=== PATIENT | male | born 1965 | race Caucasian/White ===

== ENCOUNTER 2017-06-04 12:21 | Emergency (ER) | payer OTHER ==
[~2017-06-04] VITALS: Ht 182.9 cm; Wt 82.6 kg
[2017-06-04 12:25] VITALS: BP 153/105; PULSE 69; RESP 16; TEMP 97.7; O2SAT 99
[2017-06-04] MEDS ORDERED: ASPI325T PO (12:49)
[2017-06-04] MEDS ORDERED: VITA10002 PO (12:49)
[2017-06-04] MEDS ORDERED: CEPH250T PO (12:49)
[2017-06-04] MEDS ORDERED: LISI40TA PO (12:49)
[2017-06-04] MEDS ORDERED: FISHCAP4 PO (12:49)
[2017-06-04] MEDS ORDERED: PRAV80TA2 PO (12:49)
[2017-06-04] MEDS ORDERED: SODIUM CHLORIDE 0.9% FLUSH 10 ML FLUSH IV FLUSH PRN (13:00)
[2017-06-04] MEDS ORDERED: VANCOMYCIN INJ 1,250 MG in SODIUM CHLOR 0.9% 250 ML INJ 250 ML IV ONE (13:00)
--- NOTE | 2017-06-04 13:02 | PD ---
HPI Chief Complaint: Skin Problem Time Seen by Provider: 12:45 Travel History International Travel<30 days: No Contact w/Intl Traveler<30days: No Traveled to known affect area: No History of Present Illness HPI Patient is a 52-year-old male who presents to emergency room for evaluation of skin infection. Patient reports that on Saturday, he scraped his left anterior freeman on a ladder. Reports that it initially was a scrape, reports that by Saturday, he noticed increased redness and drainage from the area. He did go to an urgent care Saturday around 11 AM and was started on Keflex 4 times a day. Patient reports that his infection seems to be getting worse. Patient reports that he went back to the urgent care center today and was told to go to the emergency room for further evaluation. Patient reports that his tetanus is up-to-date, patient denies any fevers or chills, denies any nausea or vomiting. Patient has been dressing his wounds with bacitracin dressings and has been leaving it open to dry. Patient denies any pain from the area of redness and drainage. Patient is not a diabetic. Patient reports that he has been taking Keflex as prescribed since Saturday Past Medical History Hypertension: Yes Past Surgical History Tonsillectomy: Yes Social History Alcohol Use: No Tobacco Use: Yes (12ppd) Substance Use: No Allergies-Medications (Allergen,Severity, Reaction): Coded Allergies: No Known Allergies (Unverified , 06/04/17) Reported Meds & Prescriptions Reported Meds & Active Scripts Active Bactrim DS (Sulfamethoxazole-Trimethoprim) 800-160 Mg Tab 1 Tab PO BID Keflex (Cephalexin) 500 Mg Capsule 500 Mg PO Q6H 10 Days Bacitracin Topical 500 Unit/Gm Oint 1 Applic TOPICAL TID Reported Vitamin B-12 (Cyanocobalamin) 1,000 Mcg Tab 1,000 Mcg PO DAILY Pravastatin 80 Mg Tab 80 Mg PO HS Lisinopril 40 Mg Tab 80 Mg PO HS Fish Oil + D3 (Fish Oil-Cholecalciferol) 1,200-1,000 Mg-Unit Cap 1 Cap PO DAILY Cephalexin 250 Mg Tab 250 Mg PO Q6H Aspirin 325 Mg Tab 325 Mg PO DAILY Review of Systems General / Constitutional: No: Fever, Chills Eyes: No: Visual changes HENT: No: Headaches Cardiovascular: No: Chest Pain or Discomfort Respiratory: No: Shortness of Breath Gastrointestinal: No: Abdominal Pain Genitourinary: No: Dysuria Musculoskeletal: No: Pain Skin: Positive Rash Neurologic: No: Weakness Psychiatric: No: Depression Endocrine: No: Polydipsia Hematologic/Lymphatic: No: Easy Bruising Physical Exam Narrative GENERAL: NAD, nontoxic SKIN: Focused skin assessment warm/dry. HEAD: Atraumatic. Normocephalic. EYESNo injection or drainage. ENT: No nasal bleeding or discharge. Mucous membranes pink and moist. NECK: Trachea midline. No JVD. CARDIOVASCULAR: Regular rate and rhythm. No murmur appreciated. RESPIRATORY: No accessory muscle use. Clear to auscultation. Breath sounds equal bilaterally. GASTROINTESTINAL: Abdomen soft, non-tender, nondistended. Hepatic and splenic margins not palpable. MUSCULOSKELETAL: No obvious deformities. No clubbing. No cyanosis. No edema. LLE: patient with a 12cm x 2cm cellulitis with ulceration to left anterior freeman , there is no streaking on exam, pulses intact, neurovascularly intact; RLE: patient with abrasion to right anterior freeman NEUROLOGICAL: Awake and alert. No obvious cranial nerve deficits. Motor grossly within normal limits. Normal speech. PSYCHIATRIC: Appropriate mood and affect; insight and judgment normal. Data Data Last Documented VS Vital Signs Date Time Temp Pulse Resp B/P (MAP) Pulse Ox O2 Delivery O2 Flow Rate FiO2 06/04/17 12:25 97.7 69 16 153/105 (121) 99 Orders Orders Basic Metabolic Panel (Bmp) (06/04/17 12:54) Complete Blood Count With Diff (06/04/17 12:54) Iv Access Insert/Monitor (06/04/17 12:54) Sodium Chloride 0.9% Flush (Ns Flush) (06/04/17 13:00) Tibia/Fibula (Ap/Lat) (06/04/17 ) Vancomycin Inj (Vancomycin Inj) (06/04/17 13:00) Labs Laboratory Tests Test 06/04/17 13:14 White Blood Count 12.6 TH/MM3 Red Blood Count 5.52 MIL/MM3 Hemoglobin 15.9 GM/DL Hematocrit 48.7 % Mean Corpuscular Volume 88.1 FL Mean Corpuscular Hemoglobin 28.7 PG Mean Corpuscular Hemoglobin Concent 32.6 % Red Cell Distribution Width 14.4 % Platelet Count 458 TH/MM3 Mean Platelet Volume 9.0 FL Neutrophils (%) (Auto) 73.5 % Lymphocytes (%) (Auto) 20.0 % Monocytes (%) (Auto) 4.7 % Eosinophils (%) (Auto) 1.1 % Basophils (%) (Auto) 0.7 % Neutrophils # (Auto) 9.3 TH/MM3 Lymphocytes # (Auto) 2.5 TH/MM3 Monocytes # (Auto) 0.6 TH/MM3 Eosinophils # (Auto) 0.1 TH/MM3 Basophils # (Auto) 0.1 TH/MM3 CBC Comment DIFF FINAL Differential Comment Blood Urea Nitrogen 15 MG/DL Creatinine 0.81 MG/DL Random Glucose 96 MG/DL Calcium Level 8.9 MG/DL Sodium Level 139 MEQ/L Potassium Level 3.5 MEQ/L Chloride Level 106 MEQ/L Carbon Dioxide Level 27.3 MEQ/L Anion Gap 6 MEQ/L Estimat Glomerular Filtration Rate 100 ML/MIN MDM Medical Decision Making Medical Screen Exam Complete: Yes Emergency Medical Condition: Yes Medical Record Reviewed: Yes Interpretation(s) Vital Signs Date Time Temp Pulse Resp B/P (MAP) Pulse Ox O2 Delivery O2 Flow Rate FiO2 06/04/17 12:25 97.7 69 16 153/105 (121) 99 Differential Diagnosis Differential includes cellulitis with abscess, osteomyelitis Narrative Course 52-year-old male who presents to emergency room with complaints of left anterior freeman infection after he injured himself on Saturday with a ladder. Patient has been on antibiotics since Saturday, Keflex, reports that he has noticed increased redness and drainage from his left anterior freeman. Patient's tetanus is up-to-date. Plan to obtain basic blood work, x-ray will be obtained to evaluate for possible osteomyelitis. IV vancomycin will be given to him. If labs are reassuring, plan to add Bactrim for MRSA coverage to course of treatments and bring him back to emergency room in 2 days for reevaluation. Vital Signs Date Time Temp Pulse Resp B/P (MAP) Pulse Ox O2 Delivery O2 Flow Rate FiO2 06/04/17 12:25 97.7 69 16 153/105 (121) 99 CBC & BMP Diagram 06/04/17 13:14 Calcium Level 8.9 X-ray of the left tib-fib shows no abnormalities Patient with a white blood cell count of 12.6, patient's vital signs are stable. Patient is due to have treatment with Keflex only for cellulitis with abscess. Plan to discharge patient with additional antibiotics, Bactrim to cover for MRSA. Plan to bring patient back to the emergency room in 48 hours for reevaluation. Patient understands that if symptoms worsen or progress, or if he develops any fevers chills or any streaking he should return to the emergency room earlier. Patient is discharged to home with strict outpatient follow-up. Patient does have muripicen ointment at home which he will use on wounds. Diagnosis Primary Impression: Cellulitis and abscess of left leg Patient Instructions: General Instructions Departure Forms: Tests/Procedures, Work Release Enter return to work date: Jun 10, 2017 Additional Instructions: Return to the ER in 48 hours for re-evaluation of your infection Return to the ER earlier if you develop fever/chills or if you notice streaking or progression of your infection Please add Bactrim antibiotic in addition to Keflex antibiotic Please follow up with your primary care doctor Med/Other Pt SpecificInfo: Prescription(s) given Scripts Sulfamethoxazole-Trimethoprim (Bactrim DS) 800-160 Mg Tab 1 TAB PO BID for Infection, #20 TAB 0 Refills Prov: Zina Molina DO 06/04/17 Cephalexin (Keflex) 500 Mg Capsule 500 MG PO Q6H for Infection for 10 Days, #40 CAP 0 Refills Prov: Zina Molina DO 06/04/17 Bacitracin Topical (Bacitracin Topical) 500 Unit/Gm Oint 1 APPLIC TOPICAL TID for Infection, #30 GM 0 Refills Prov: Zina Molina DO 06/04/17 Disposition: 01 DISCHARGE HOME Condition: Stable Zina Molina DO Jun 04, 2017 13:02
[2017-06-04 13:23] LABS: AUTOMATED NEUTROPHIL # 9.3 TH/MM3 (1.8-7.7); BASOPHIL # 0.1 TH/MM3 (0-0.2); BASOPHIL % 0.7 % (0.0-2.0); EOSINOPHIL # 0.1 TH/MM3 (0-0.4); EOSINOPHIL % 1.1 % (0.0-4.0); HEMATOCRIT 48.7 % (39.0-51.0); LYMPHOCYTE # 2.5 TH/MM3 (1.0-4.8); MEAN CELL VOLUME 88.1 FL (80.0-100.0); MEAN CORPUSCULAR HEMOGLOBIN 28.7 PG (27.0-34.0); MEAN CORPUSCULAR HGB CONC 32.6 % (32.0-36.0); MONO % 4.7 % (0.0-8.0); NEUT % 73.5 % (16.0-70.0); PLATELET COUNT 458 TH/MM3 (150-450); RED BLOOD COUNT 5.52 MIL/MM3 (4.50-5.90); RED CELL DISTRIBUTION WIDTH 14.4 % (11.6-17.2); WHITE BLOOD COUNT 12.6 TH/MM3 (4.0-11.0)
[2017-06-04 13:27] LABS: HEMO FLAGS DIFF FINAL; POTASSIUM 3.5 MEQ/L (3.5-5.1)
[2017-06-04 13:30] LABS: BICARBONATE 27.3 MEQ/L (21.0-32.0)
[2017-06-04] MEDS ORDERED: BACI500O9 TOPICAL (13:30)
[2017-06-04] MEDS ORDERED: CEPH-460 PO (13:30)
[2017-06-04] MEDS ORDERED: BACT800T5 PO (13:30)
--- NOTE | 2017-06-04 13:52 | RADRPT ---
EXAM DATE/TIME: 06/04/2017 13:22 [facility] COMPARISON: No previous studies available for comparison. INDICATIONS : Left anterior tibia/fibula pain due to infection post cut due to fall from ladder. MEDICAL HISTORY : Hypertension. SURGICAL HISTORY : Tonsillectomy. ENCOUNTER: Initial ACUITY: 4 - 6 days PAIN SCORE: 7/10 LOCATION: Left anterior tibia/fibula FINDINGS: Two view examination of the left tibia demonstrates no evidence of fracture or dislocation. Bony min eralization is normal. The soft tissue structures are intact. CONCLUSION: 1. Negative examination. Ronnie Rocha MD on June 04, 2017 at 13:46 Board Certified Radiologist. This report was verified electronically.
[2017-06-04 15:21] VITALS: BP 144/96
== END 2017-06-04 15:24 | disposition home or self-care (01) ==
LOC: PHED 12:21
DX: L03.116 Cellulitis of left lower limb (principal); F17.200 Nicotine dependence, unspecified, uncomplicated
CPT/HCPCS: 73590; 80048; 85025; 96365; 99284; J3370; J7050

== ENCOUNTER 2017-06-06 10:01 | Emergency (ER) | payer OTHER ==
[~2017-06-06] VITALS: Ht 182.9 cm; Wt 82.7 kg
[~2017-06-06 10:01] MED LIST: ASPI325T PO; BACI500O9 TOPICAL; BACT800T5 PO; CEPH-460 PO; CEPH250T PO; FISHCAP4 PO; LISI40TA PO; PRAV80TA2 PO; VITA10002 PO
[2017-06-06 10:07] VITALS: BP 173/117; PULSE 65; RESP 18; TEMP 98.2; O2SAT 97
--- NOTE | 2017-06-06 10:42 | PD ---
HPI Chief Complaint: Wound/Suture/Staple Re-Check Time Seen by Provider: 10:33 Travel History International Travel<30 days: No Contact w/Intl Traveler<30days: No Traveled to known affect area: No History of Present Illness HPI Patient is a 52-year-old male presents emergency department for evaluation of left lower extremity wound. The patient has been evaluated here for this 2 days ago and it outside facility before that. He was prescribed Keflex an outside facility and Bactrim was added here. He returns because the wound is not getting better and he wanted to have it reevaluated. Patient states he has had some minimal swelling but states that she started to get better in the calf. Denies any history of blood clots. He is a smoker. He is also applying antibiotic ointment to the wound itself. Denies any chest pain shortness of breath fevers abdominal pain nausea vomiting. Symptoms are mild, unchanged, left lower extremity and associated signs symptoms as above. PFSH Past Medical History Diminished Hearing: No Hypertension: Yes ?: Not Past Surgical History Tonsillectomy: Yes Social History Alcohol Use: No Tobacco Use: Yes (1/2ppd) Substance Use: No Allergies-Medications (Allergen,Severity, Reaction): Coded Allergies: No Known Allergies (Unverified , 06/04/17) Reported Meds & Prescriptions Reported Meds & Active Scripts Active Bactrim DS (Sulfamethoxazole-Trimethoprim) 800-160 Mg Tab 1 Tab PO BID Keflex (Cephalexin) 500 Mg Capsule 500 Mg PO Q6H 10 Days Bacitracin Topical 500 Unit/Gm Oint 1 Applic TOPICAL TID Reported Vitamin B-12 (Cyanocobalamin) 1,000 Mcg Tab 1,000 Mcg PO DAILY Pravastatin 80 Mg Tab 80 Mg PO HS Lisinopril 40 Mg Tab 80 Mg PO HS Fish Oil + D3 (Fish Oil-Cholecalciferol) 1,200-1,000 Mg-Unit Cap 1 Cap PO DAILY Cephalexin 250 Mg Tab 250 Mg PO Q6H Aspirin 325 Mg Tab 325 Mg PO DAILY Review of Systems Except as stated in HPI: all other systems reviewed are Neg Physical Exam Narrative GENERAL: Well-nourished, well-developed patient. SKIN: Focused skin assessment warm/dry. There is some bruising and ecchymosis of the left lower extremity over the heel as well as the anterior compartments of the calf wrapping around to the posterior calf. There is a longitudinal wound approximately 15 cm long running down the anterior tibial prominence. The wound does have granulation tissue with minimal surrounding reactive erythema but no obvious cellulitis or fluid collection. There is also some swelling in the anterior compartment specifically. There is no swelling proximal to the knee. There is minimal swelling at the ankle as well. There is also a minimal abrasion to the anterior tibia on the right. HEAD: Normocephalic. EYES: No scleral icterus. No injection or drainage. NECK: Supple, trachea midline. No JVD or lymphadenopathy. CARDIOVASCULAR: Regular rate and rhythm without murmurs, gallops, or rubs. RESPIRATORY: Breath sounds equal bilaterally. No accessory muscle use. GASTROINTESTINAL: Abdomen soft, non-tender, nondistended. MUSCULOSKELETAL: No cyanosis, or edema. BACK: Nontender without obvious deformity. No CVA tenderness. Data Data Last Documented VS Vital Signs Date Time Temp Pulse Resp B/P (MAP) Pulse Ox O2 Delivery O2 Flow Rate FiO2 06/06/17 12:08 06/06/17 11:58 77 18 97 Room Air 06/06/17 10:07 98.2 Orders Orders Us Leg Venous Doppler (06/06/17 11:00) Ed Discharge Order (06/06/17 11:55) MDM Medical Decision Making Medical Screen Exam Complete: Yes Emergency Medical Condition: Yes Differential Diagnosis DVT needs consideration, anterior tibial wound, cellulitis, osteomyelitis highly unlikely. Narrative Course Patient roomed in emergency department, his wound appears to be healing well. Ultrasound of his lower extremities negative for DVT. Discussed symptomatic management follow-up with his primary care physician return to ED criteria. Continue antibiotics until gone. Diagnosis Primary Impression: Abrasion of lower leg Qualified Codes: S80.812A - Abrasion, left lower leg, initial encounter Additional Instructions: Continue medications as prescribed, leave open to air as much as possible. If you cover the wound while at work he can return to work. If increased swelling or redness or discharge around please return to the emergency department, expect 4-6 weeks for complete wound healing. Disposition: 01 DISCHARGE HOME Condition: Stable Clement Lechuga MD Jun 06, 2017 10:42
[2017-06-06 11:58] VITALS: BP 151/93; PULSE 77; RESP 18; O2SAT 97
--- NOTE | 2017-06-06 12:09 | RADRPT ---
EXAM DATE/TIME: 06/06/2017 11:37 [facility] COMPARISON: No previous studies available for comparison. INDICATIONS : Left leg pain. MEDICAL HISTORY : Hypertension. Anticoagulant therapy, Aspirin 325mg. SURGICAL HISTORY : Tonsillectomy. ENCOUNTER: Initial ACUITY: 1 week PAIN SCORE: 5/10 LOCATION: Left leg. TECHNIQUE: Venous ultrasound of the leg was performed from the inguinal ligament to the proximal calf. Real-verenice e, color Doppler and spectral tracing, compression and augmentation techniques were used. FINDINGS: There is normal compressibility of the deep venous system from the inguinal region to the proximal ca lf. No echogenic clot is seen in the lumen of the common femoral, femoral, popliteal, and posterior tibial veins. There is a normal response of the venous system to proximal and distal augmentation an d respiration. Iliac vein open and patent CONCLUSION: Normal examination. No evidence of DVT Oliver Parra MD on June 06, 2017 at 12:07 Board Certified Radiologist. This report was verified electronically.
== END 2017-06-06 12:09 | disposition home or self-care (01) ==
LOC: PHED 10:01
DX: S80.812A Abrasion, left lower leg, initial encounter (principal); R22.42 Localized swelling, mass and lump, left lower limb; M79.662 Pain in left lower leg; I10 Essential (primary) hypertension; F17.200 Nicotine dependence, unspecified, uncomplicated; X58.XXXA Exposure to other specified factors, initial encounter
CPT/HCPCS: 93971

== ENCOUNTER 2017-12-27 09:10 | Day surgery (SDC) | payer OTHER ==
[2017-12-27] VITALS (10 sets, daily range): BP systolic 132–149; BP diastolic 81–92; PULSE 64–71; RESP 16–18; TEMP 98–98.4; O2SAT 96–98
[~2017-12-27] VITALS: Ht 182.9 cm; Wt 85.9 kg
[~2017-12-27 09:10] MED LIST changes: +ASPI-183 PO; -ASPI325T PO
[2017-12-27] MEDS ORDERED: IOHEXOL 350 MG/ML 100 ML BTL (for Cath Lab) OTHER ONE (09:11)
[2017-12-27] MEDS ORDERED: ALEV220T14 PO (10:17)
[2017-12-27 10:28] LABS: AUTOMATED NEUTROPHIL # 6.5 TH/MM3 (1.8-7.7); BASOPHIL # 0.1 TH/MM3 (0-0.2); BASOPHIL % 1.3 % (0.0-2.0); EOSINOPHIL # 0.3 TH/MM3 (0-0.4); EOSINOPHIL % 3.3 % (0.0-4.0); HEMATOCRIT 47.9 % (39.0-51.0); HEMOGLOBIN 16.2 GM/DL (13.0-17.0); LYMPH % 25.6 % (9.0-44.0); LYMPHOCYTE # 2.6 TH/MM3 (1.0-4.8); MEAN CORPUSCULAR HEMOGLOBIN 29.4 PG (27.0-34.0); MEAN CORPUSCULAR HGB CONC 33.8 % (32.0-36.0); MONO % 6.9 % (0.0-8.0); MONOCYTE # 0.7 TH/MM3 (0-0.9); NEUT % 62.9 % (16.0-70.0); PLATELET COUNT 594 TH/MM3 (150-450); RED BLOOD COUNT 5.51 MIL/MM3 (4.50-5.90); RED CELL DISTRIBUTION WIDTH 15.1 % (11.6-17.2); WHITE BLOOD COUNT 10.3 TH/MM3 (4.0-11.0)
[2017-12-27 10:34] LABS: PROTHROMBIN TIME - PATIENT 10.2 SEC (9.8-11.6)
[2017-12-27 10:45] LABS: BICARBONATE 25.8 MEQ/L (21.0-32.0); CALCIUM 8.9 MG/DL (8.5-10.1); CREATININE 0.91 MG/DL (0.60-1.30)
[2017-12-27] MEDS ORDERED: HEPARIN-NS/PF FLUSH BAG 2,000 ML IV FLUSH ONE (10:46)
[2017-12-27] MEDS ORDERED: HEPARIN SODIUM - IV 10,000 UNITS/10 ML VIAL ONE (10:46)
[2017-12-27] MEDS ORDERED: MIDAZOLAM HCL 2 MG/2 ML VIAL ONE (10:46)
[2017-12-27] MEDS ORDERED: NITROGLYCERIN INJ 5 ML ONE (10:47)
[2017-12-27] MEDS ORDERED: VERAPAMIL HCL 5 MG/2 ML VIAL ONE (10:47)
[2017-12-27] MEDS ORDERED: NS 1000P @30 MLS/HR (KVO) IV SCH (11:00)
[2017-12-27] MEDS ORDERED: TICAGRELOR 90 MG TAB PO ONE (11:58)
[2017-12-27] MEDS ORDERED: ISOS30TA3 PO (12:00)
--- NOTE | 2017-12-27 12:11 | CATHPROC ---
[employer] [facility] HIS Report Study Information Study Number Admission Scheduled Start Study Start [id number] Dec 27 2017 9:10AM 12/27/2017 Dec 27 2017 10:41AM [place] [facility] Cardiac Catheterization Admit Source Facility Department Other [facility] - Nutrition Intern Physician and Clinical Staff Initial Cruzito Ruano Hand Cementer Brayan Vigil,MIGUEL ÁNGEL Recorder [employer] ,GLENNAN Scrub Mena Badillo ,RT(R) Procedures Performed Procedure Location (Site) Vessel Name Coronary Angiograms LCA Left Coronary Coronary Angiograms RCA Right Coronary Drug Eluting Inflatio CIRC Prox CIRC L Heart Cath PTCA CIRC Prox CIRC Wire insertion Radial (right) Radial Art. Equipment Time Steam [employer] Records Clerk Description Size Mfg Part Number Used/Scraped WIRE, BALANCE MIDDLEWEIGHT [id number] 11:24 [employer] 190CM Used 190CM *[id number] TRANSDUCER, TRUWAVE [id number] 10:56 BERNAL COLON * Used W/STOCKCOCK *[id number] *[id number] [id number] *[id number] 10:56 [employer] PACK, CCL CUSTOM * Used *[id number] 10:56 [employer] SUPPORT, ARTERIAL ADULT 80729 *[id number] Used [id number] 11:32 [employer] BALLOON, 2.0 X 12MM EUPHORA 12MM Used *[id number] BALLOON, 2.75 X 12MM NC [id number] 11:47 [employer] 12MM Used EUPHORA *[id number] 11:42 [employer] STENT, 2.75 18MM SILVIA 2.75 18MM Used *[id number] 11:26 [employer]/AVE EBU 3.5 Z2 GUIDE CATHETER FR 6 Used *[id number] 11:39 [employer] 30 VANIA INDEFLATOR Used *[id number] BAND, RADIAL COMPRESSION TR [id number] 11:56 [employer] 29CM Used LARGE 29 *[id number] BAND, RADIAL COMPRESSION TR [id number] 11:56 [employer] 29CM Used LARGE 29 *[id number] 10:56 [employer] WIRE, EXCHANGE 260CM 3MMJ 260CM Used *[id number] 10:56 [employer]AM[employer] MANIFOLD, 4 PORT * Used *[id number] 10:56 [employer] OMNIPAQUE, 350 MG, 150ML 150ML [id number] Used [id number] 10:56 [employer] BLANKET,WARM AIR CCL * Used *[id number] 11:26 [employer] SHEATH, FR6 TERUMO (10CM) FR 6 Used *[id number] SHEATH, FR6 TRANSRADIAL [id number] 10:56 [employer] FR 6 Used SLENDER 10CM *[id number] Equipment Model, Serial, Lot Number and Expiration Data Description Model Number Serial Number Lot Number Expiration Date BALLOON, 2.75 X 12MM NC [id number] 10-19-2019 EUPHORA STENT, 2.75 18MM SILVIA [id number] 07-20-2019 History: Current Medications Medication Dosage/Unit Route Frequency Last Date/Time Taken ASA 325 mg 12/27/2017 History: Allergies Allergy Reaction No Known Allergies History: Risk Factors Family History of Hypertension Dyslipidemia Previous VT Previous Heart Failure Premature CAD Yes Yes Yes No No Prior Valve Prior PCI Prior CABG Surgery No No No Cerebrovascular Peripheral Artery Chronic Lung On Dialysis Diabetes Disease Disease Disease No No No No No History: Stress Tests Stress or Imaging Studies Performed Yes Stress Test SPECT Stress Test SPECT Result Stress Test SPECT Ischemia Risk/Extent Yes Positive Low History: Other Current Smoker Method Packs a Day Years Used Pack Years No Cigarettes 1 30 30 Comment Quit 2 months ago Labs Hgb (g/dl) Hct (%) WBC (l/cumm) 11.60-17.00 35.00-51.00 4.00-11.00 16.2 47.9 10.3 Glucose (mg/dl) BUN (mg/dl) Creatinine (mg/dl) BUN:Creatinine (1:x) 74.00-106.00 7.00-18.00 0.50-1.30 10.00-20.00 105 20 0.9 22.2 Na (meq/l) K (meq/l) 136.00-145.00 3.50-5.10 142 4.2 INR (PTT:PT) 0.90-1.10 1 CPK-MB (ng/ML) 0.50-3.60 Not Drawn Medication Medication Total Dose (Bolus/Oral) Medication Total Dosage/Unit 1% XYLOCAINE 5 mL BRILINTA 180 mg FENTANYL 25 mcg HEPARIN 5200 units RADIAL COCKTAIL 5 mL (Bolus) VERSED 0.5 mg Medications (Bolus/Oral) Medication Time Given Dosage/Unit Administered By Reason VERSED 12/27/2017 11:14:39 AM 0.5 mg Brayan Vigil 0.5 mg VERSED given in lab by Brayan Vigil RN in Left Forearm via Peripheral IV. Ordered by Cruzito Douglas FENTANYL 12/27/2017 11:14:49 AM 25 mcg Brayan Vigil 25 mcg FENTANYL given in lab by Brayan Vigil RN in Left Forearm via Peripheral IV. Ordered by Cruzito Almonte 1% XYLOCAINE 12/27/2017 11:14:56 AM 5 mL Cruzito Woodson 5 mL 1% XYLOCAINE given in lab by Cruzito Woodson via Subcutaneous. Ordered by Cruzito Woodson RADIAL COCKTAIL 12/27/2017 11:16:13 AM 5 mL (Bolus) Cruzito Woodson 5 mL (Bolus) RADIAL COCKTAIL given in lab by Cruzito Woodson via Radial. Ordered by Sergio Woodson Ntg 200mcg Verapamil 2.5mg Heparin 3400U. HEPARIN 12/27/2017 11:27:31 AM 5200 units Brayan Vigil 5200 units HEPARIN given in lab by Brayan Vigil RN in Left Forearm via Peripheral IV. Ordered by Cruzito Felipe. BRILINTA 12/27/2017 12:00:01 PM 180 mg Brayan Vigil 180 mg BRILINTA given in lab by Brayan Vigil RN via Oral. Ordered by Cruzito Woodson Medication (Drip) Medication Time Given Dosage/Unit Concentration/Unit Diluent (ml) Solution IV Solutions 12/27/2017 10:46:50 AM 50 mL (IV) NaCl .9 IV Solutions given by Yoko Gaming BSN in Left Forearm via Peripheral IV. Pump/Drip Flow usin g NaCl .9. Ordered by Cruzito Woodson Initial Case Assessment Cardiovascular HR Rhythm NIBP Chest Pain 59 sb 138/91 0 Edema Present Skin color Skin None Normal Warm Dry Circulatory - Right Pulses Dorsalis Pedis Femoral Radial 2 2 2 Scale (0,1,2,3,4,d) Circulatory - Left Pulses Dorsalis Pedis Femoral Radial 2 2 Scale (0,1,2,3,4,d) Circulatory - Lower Extremities Color Lower Right Color Lower Left Normal Normal Neurological State Oriented to time-place- Alert Moves all extremities person Respiration - General Respiration Rate SpO2 (%) O2 (lpm) (B/min) 12 96 0 Final Case Assessment Cardiovascular HR Rhythm NIBP Chest Pain 61 sr 138/79 0 Edema Present Skin color Skin None Normal Warm Dry Circulatory - Right Pulses Dorsalis Pedis Femoral Radial 2 2 2 Scale (0,1,2,3,4,d) Circulatory - Left Pulses Dorsalis Pedis Femoral Radial 2 2 Scale (0,1,2,3,4,d) Circulatory - Lower Extremities Color Lower Right Color Lower Left Normal Normal Neurological State Oriented to time-place- Alert Moves all extremities person Respiration - General Respiration Rate SpO2 (%) O2 (lpm) (B/min) 13 95 0 Chronological Log Time Study Chronological Log 10:40:52 Patient arrived via Bed. 10:40:53 Patient Name, D.O.B, / Armband Verified By R.N. 10:40:54 Consent signed by the physician and the patient and verified by the Nutrition Intern staff. 10:40:56 Verbal Stimulation=2 Physical Stimulation=2 Airway=2 Respiration=2 TOTAL=8. (0=absent, 1=li mited, 2=present) 10:41:25 Patient has been NPO for More than 6Hrs. 10:41:28 Skin Breakdown- none per patient 10:41:40 History and physical on the chart or being dictated. 10:45:38 A # 20 IV was noted in the Forearm (left). Grade = 0 IV Solutions given by Yoko Gaming BSN in Left Forearm via Peripheral IV. Pump/Drip Antoine w using NaCl .9. 10:46:50 Ordered by Cruzito Woodson Assessment: Initial Case, HR=59 BPM, Rhythm=sb, YBJU=115/91 mmhg, Chest Pain=0, Edema=None, Col or=Normal, Skin = Warm, Dry Right Pulses: Scott Ped=2, Femoral=2, Radial=2 Left Pulses: Scott Ped=2, Femoral=2 10:48:27 Lower Right Extremities: Color=Normal Lower Left Extremities: Color=Normal Neurological: State=Alert, Ox3, GUZMAN Respiration: Resp=12 B/min, SpO2=96 %, O2=0 lpm Vitals capture started with the following parameters, Patient=Adult, Interval=5 min, Initial Pr crsfmt=297 mmHg, 10:48:30 Deflation Rate=5 mmHg, Cuff placed on Right Ankle 10:48:43 Reference ECG taken 10:49:00 HR=59 bpm, YDPH=173/91 mmhg, SpO2=96.0 %, Resp=12 B/min, Pain=0, Stephen=10, Lundy=2 10:49:40 Allens test performed on the right radial and ulnar artery. 10:54:01 HR=59 bpm, PCKF=127/94 mmhg, SpO2=96.0 %, Resp=10 B/min, Pain=0, Stephen=10, Lundy=2 10:56:23 Right Radial and groin(s) prepped with 2% chlorhexidine, and draped after a 3 min. waiting time. 10:59:02 HR=61 bpm, ITVY=814/90 mmhg, SpO2=97.0 %, Resp=10 B/min, Pain=0, Stephen=10, Lundy=2 10:59:17 Pressure channel 1 zeroed. 11:04:03 HR=64 bpm, AHWI=998/86 mmhg, SpO2=97.0 %, Resp=12 B/min, Pain=0, Stehpen=10, Lundy=2 11:05:59 MD arrived. 11:09:02 HR=60 bpm, AYVF=273/89 mmhg, SpO2=96.0 %, Resp=7 B/min, Pain=0, Stephen=10, Lundy=2 11:14:06 HR=63 bpm, HGQE=965/83 mmhg, SpO2=96.0 %, Resp=7 B/min Time Out. Correct patient, correct procedure, correct physician, power injector not loaded with contrast with surgical 11:14:27 team present. Time Out Concurred by MD and individual staff in procedure. 11:14:36 Case Start 11:14:39 0.5 mg VERSED given in lab by Brayan Vigil, RN in Left Forearm via Peripheral IV. Ordered by Cruzito Woodson 11:14:49 25 mcg FENTANYL given in lab by Brayan Vigil, MIGUEL ÁNGEL in Left Forearm via Peripheral IV. Order ed by Cruzito Woodson 11:14:56 5 mL 1% XYLOCAINE given in lab by Cruzito Woodson via Subcutaneous. Ordered by Cruzito Woodson 11:15:38 Access site was Right Radial Artery. A SHEATH, FR6 TRANSRADIAL SLENDER 10CM FR 6 was advanced into the Radial (right) using the Perc utaneous 11:15:54 technique. 5 mL (Bolus) RADIAL COCKTAIL given in lab by Cruzito Woodson via Radial. Ordered by Cruzito Hammonds Ntg 11:16:13 200mcg Verapamil 2.5mg Heparin 3400U. A JR 4.0 INFINITI CATHETER FR 5 was advanced over a wire. OMNIPAQUE, 350 MG, 150ML 150ML was us ed for 11:17:02 injections. Recorded Pressure: LV, HR=96, Condition=Condition 1 11:18:28 (Left Ventricle) LV 143/2/14 Recorded Pressure: LV, Ao, HR=80, Condition=Condition 1 11:18:48 (Left Ventricle) LV 133/7/10, (Aorta) Ao 121/75/97 11:19:07 HR=69 bpm, LKEE=990/75 mmhg, SpO2=94.0 %, Resp=12 B/min, Pain=0, Stephen=10, Lundy=2 Recorded Pressure: Ao, HR=67, Condition=Condition 1 11:19:17 (Aorta) Ao 123/78/99 11:19:29 The RCA was injected and visualized at various angles. OMNIPAQUE, 350 MG, 150ML 150ML used . After removing the current catheter a JL 3.5 INFINITI CATHETER FR 5 was advanced over a WIRE, E XCHANGE 260CM 11:20:50 3MMJ 260CM. 11:23:20 The LCA was injected and visualized at various angles. OMNIPAQUE, 350 MG, 150ML 150ML used . 11:24:08 HR=67 bpm, PNWH=626/70 mmhg, SpO2=94.0 %, Resp=15 B/min, Pain=0, Stephen=10, Lundy=2 11:26:21 Catheter was removed A SHEATH, FR6 TERUMO (10CM) FR 6 was exchanged in the Radial (right). This was necessary in ord er to accomodate 11:26:33 a larger catheter. 11:27:31 5200 units HEPARIN given in lab by Brayan Vigil RN in Left Forearm via Peripheral IV. Or dered by Cruzito Woodson A EBU 3.5 Z2 GUIDE CATHETER FR 6 was advanced over a wire. OMNIPAQUE, 350 MG, 150ML 150ML was u sed for 11:28:38 injections. 11:29:03 HR=65 bpm, VJOA=500/93 mmhg, SpO2=97.0 %, Resp=19 B/min, Pain=0, Stephen=10, Lundy=2 11:29:23 Wire removed 11:31:57 A WIRE, EXCHANGE 260CM 3MMJ 260CM was inserted via Radial (right). 11:33:37 The previous wire was exchanged for a WIRE, BALANCE MIDDLEWEIGHT 190CM 190CM. 11:34:43 HR=62 bpm, BNIZ=995/77 mmhg, SpO2=96.0 %, Resp=10 B/min, Pain=0, Stephen=10, Lundy=2 11:36:18 Interventional wire has crossed the lesion 11:37:06 Activated Clotting Time Drawn A BALLOON, 2.0 X 12MM EUPHORA 12MM was inserted over WIRE, BALANCE MIDDLEWEIGHT 190CM 190CM via the 11:38:05 Radial (right). A BALLOON, 2.0 X 12MM EUPHORA 12MM over a WIRE, BALANCE MIDDLEWEIGHT 190CM 190CM in the CIRC Pr ox was 11:38:34 inflated using a 30 VANIA INDEFLATOR at 8 vania for 14 sec. 11:39:07 HR=62 bpm, ONEG=023/88 mmhg, SpO2=97.0 %, Resp=10 B/min, Pain=0, Stephen=10, Lundy=2 A BALLOON, 2.0 X 12MM EUPHORA 12MM over a WIRE, BALANCE MIDDLEWEIGHT 190CM 190CM in the CIRC Pr ox was 11:39:25 inflated using a 30 VANIA INDEFLATOR at 14 vania for 15 sec. 11:42:13 ACT (Normal Range 90-180) = 272 11:42:45 Balloon Removed. 11:44:06 HR=61 bpm, DNYW=925/90 mmhg, SpO2=95.0 %, Resp=12 B/min, Pain=0, Stephen=10, Lundy=2 A STENT, 2.75 18MM SILVIA 2.75 18MM was advanced through a EBU 3.5 Z2 GUIDE CATHETER FR 6 over a WIRE, 11:44:23 BALANCE MIDDLEWEIGHT 190CM 190CM. A STENT, 2.75 18MM SILVIA 2.75 18MM was deployed using a 30 VANIA INDEFLATOR at 12 atmospheres for 30 seconds 11:44:37 in the CIRC Prox. 11:46:01 Delivery device removed A BALLOON, 2.75 X 12MM NC EUPHORA 12MM was inserted over WIRE, BALANCE MIDDLEWEIGHT 190CM 190CM via 11:47:45 the Radial (right). A BALLOON, 2.75 X 12MM NC EUPHORA 12MM over a WIRE, BALANCE MIDDLEWEIGHT 190CM 190CM in the CIR C 11:48:15 Prox was inflated using a 30 VANIA INDEFLATOR at 12 vania for 12 sec. 11:49:03 HR=62 bpm, LIDX=827/93 mmhg, SpO2=96.0 %, Resp=18 B/min, Pain=0, Stephen=10, Lundy=2 A BALLOON, 2.75 X 12MM NC EUPHORA 12MM over a WIRE, BALANCE MIDDLEWEIGHT 190CM 190CM in the CIR C 11:49:49 Prox was inflated using a 30 VANIA INDEFLATOR at 16 vania for 12 sec. 11:51:34 Balloon Removed. 11:52:43 Wire removed 11:53:20 A WIRE, EXCHANGE 260CM 3MMJ 260CM was inserted via Radial (right). 11:53:59 Case End 11:54:08 HR=61 bpm, AZIL=138/79 mmhg, SpO2=95.0 %, Resp=10 B/min 11:54:09 Catheter and wire removed without difficulty Assessment: Final Case, HR=61 BPM, Rhythm=sr, JQJR=682/79 mmhg, Chest Pain=0, Edema=None, Color =Normal, Skin = Warm, Dry Right Pulses: Scott Ped=2, Femoral=2, Radial=2 Left Pulses: Scott Ped=2, Femoral=2 11:54:43 Lower Right Extremities: Color=Normal Lower Left Extremities: Color=Normal Neurological: State=Alert, Ox3, GUZMAN Respiration: Resp=13 B/min, SpO2=95 %, O2=0 lpm Radial Compression Device Used. 11 mLs of air placed in BAND, RADIAL COMPRESSION TR LARGE 29 29 CM. Affected 11:55:11 hand 98 % O2 saturation. 11:56:00 No case complications noted. 11:56:03 Cine recording checked. 11:56:05 Bedside Report will be given. 11:56:06 Implantable Device card placed in patient's chart. 11:56:13 A Left Heart Cath was performed. 11:59:07 HR=56 bpm, UWZC=563/89 mmhg, SpO2=98.0 %, Resp=15 B/min, Pain=0, Stephen=10, Lundy=2 12:00:01 180 mg BRILINTA given in lab by Brayan Vigil RN via Oral. Ordered by Cruzito Woodson 12:01:31 Vitals capture stopped. 12:03:36 Patient moved to [facility] End Study - Contrast Media Used In Study Contrast Total Opened (mL) Total Used (mL) Total Wasted (mL) Omnipaque 100 100 0 End Study - Maximum Contrast Load Max Contrast Load (mL) 327.3 End Study - Radiation Exposure Fluoro Time (minutes) 8.5 End Study - Patient Disposition Complications Transferred To Interventional Outcome No Nutrition Intern Holding successful
[2017-12-27] MEDS ORDERED: MISC INFORMATION XX ONE (12:15)
[2017-12-27] MEDS ORDERED: oxyCODONE/ACETAMINOPHEN 5 MG/325 MG TAB PO PRN (12:15)
[2017-12-27] MEDS ORDERED: MORPHINE SULFATE 4 MG/ML INJ IV PUSH PRN (12:15)
[2017-12-27] MEDS ORDERED: ONDANSETRON HCL 4 MG/2 ML VIAL IVP PRN (12:15)
[2017-12-27] MEDS ORDERED: oxyCODONE/ACETAMINOPHEN 10 MG/325 MG TAB PO PRN (12:15)
[2017-12-27] MEDS ORDERED: ACETAMINOPHEN 325 MG TAB PO PRN (12:15)
--- NOTE | 2017-12-27 16:35 | EKG ---
Date Performed: 12/27/2017 Time Performed: 10:16:30 PTAGE: 52 years EKG: Sinus rhythm . Leftward axis Borderline ECG NO PREVIOUS TRACING DOCTOR: Akua Bowen Interpretating Date/Time 12/27/2017 16:21:45
[2017-12-27] MEDS ORDERED: BRIL90TA PO (18:16)
[2017-12-27] MEDS ORDERED: ATOR80TA45 PO (18:16)
[2017-12-27] MEDS ORDERED: ASPI81 PO (18:16)
--- NOTE | 2017-12-27 18:35 | MA ---
cc: Cruzito Woodson DO DATE: 12/27/2017 DATE OF PROCEDURE: 12/27/2017 PROCEDURE PERFORMED: Left heart catheterization, coronary angiogram, moderate sedation 40 minutes, [place] drug-eluting stent (2.75 x 18) to left circumflex into the obtuse marginal. PREPROCEDURE DIAGNOSIS: Unstable angina on multiple antianginals, abnormal stress test. POSTPROCEDURE DIAGNOSIS: Unstable angina, status post David drug-eluting stent (2.75 x 18) to the proximal left circumflex into the first obtuse marginal. MEDICATIONS: Versed 0.5 mg, fentanyl 25 mcg, nitro 200 mcg, verapamil 2.5 mg, heparin 8600 units, Brilinta 180 mg. CONTRAST USED: 100 mL. FLUOROSCOPY: 8.5 minutes. MODERATE SEDATION: 40 minutes. FRAILTY SCORE: 2. ESTIMATED BLOOD LOSS: 10 mL. PROCEDURAL SUMMARY: Sergio Trevino is a pleasant 52-year-old male who sees my partner, Dr. Parra in the office and underwent stress testing which was difficult to discern possible ischemia in the inferolateral although it may have been diaphragm attenuation artifact. The patient continued to have typical angina while being on amlodipine and Imdur for antianginals. Because of this, he was recommended cardiac catheterization. Risks, benefits and alternatives were explained to him and he consented to such. He was brought to the lab and prepped in the usual sterile fashion. The right radial artery was accessed using a modified Seldinger technique and placement of a 5/6 [place] slender sheath. This was easily aspirated and flushed. A JR4 was advanced over a J-wire to the ascending aorta and across the aortic valve for measurement of left ventricular pressure. This was pulled back across the aortic valve showing no significant gradient of aortic stenosis. JR4 was used for selective angiography of the right coronary artery system. This was exchanged out for a JL3.5, which was used for selective angiography of the left coronary artery system. JL3.5 was removed over a J wire. Please see notes below for intervention. LEFT MAIN: Normal-sized vessel with no disease. It bifurcates into an LAD and circumflex. LAD: Normal-sized vessel with mild luminal irregularities throughout the proximal and mid portion, but no significant disease. It gives off 2 major diagonals with no disease. LEFT CIRCUMFLEX: A 90-95% stenosis throughout the proximal to mid portion up until the bifurcation into the first and second obtuse marginal. RCA: Normal-sized vessel with no disease noted. It supplies a PDA as well as 2 posterolateral branches. LVEDP: 10. INTERVENTION: Because of the significance of disease as well as the patient's symptoms on multiple antianginals, it was felt reasonable to intervene on the left circumflex into the obtuse marginal. An EBU 3.5 guide was engaged in the left main. Heparin was given as an anticoagulant. A BMW wire was advanced into the first obtuse marginal. A compliant balloon (2 x 12) was used to predilate the lesion. Because the lesion essentially went into the bifurcation, I felt that the bifurcation needed to be covered and so provisional stenting was planned. An [place] drug-eluting stent (2.75 x 18) was then placed over the lesion from the left circumflex into the first obtuse marginal and inflated. A noncompliant balloon (2.75 x 12) was used to post-dilate the stent. Final angiogram shows a well-opposed stent with no perforations or dissections and no pinching of the covered second obtuse marginal. The guide and wire were removed. Radial band was placed over the arteriotomy site for hemostasis. The patient was loaded with 180 mg of Brilinta. INTERVENTIONAL DATA: Proximal left circumflex, lesion length 16, pre SHANNON 3, post SHANNON 3, post stenosis 0. IMPRESSION: 1. Unstable angina on multiple antianginals. 2. Coronary artery disease, status post [place] drug-eluting stent (2.75 x 18) to the proximal left circumflex into the first obtuse marginal. RECOMMENDATIONS: 1. Mr. Trevino underwent PCI as above and will be placed on aspirin and Brilinta therapy. 2. He will be watched overnight and if stable in the morning discharged home for followup with Dr. Parra 3. 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 4. He previously was on aspirin 325 mg and this will be decreased to 81 mg. 5. He previously was on Crestor 20, but was getting what sounds like muscle cramps. We will attempt to place him on Lipitor 80 mg here and he will be discharged home on this. 6. He will continue on his lisinopril therapy. Thank you for allowing me to see Sergio Trevino. If there are any questions, please do not hesitate to call. DO CHUCKY Connolly/VIRAJ , 06:11 PM , 06:34 PM
[2017-12-27] MEDS ORDERED: LISINOPRIL 20 MG TAB PO SCH (21:00)
[2017-12-27] MEDS ORDERED: ATORVASTATIN 80 MG TAB PO SCH (21:00)
[2017-12-27] MEDS: TICAGRELOR 90 MG TAB PO SCH (21:18)
[2017-12-27] MEDS ORDERED: AMLO5 PO (21:25)
[2017-12-27] MEDS ORDERED: amLODIPine BESYLATE 5 MG TAB PO ONE (22:15)
[2017-12-28] VITALS (13 sets, daily range): BP systolic 140–142; BP diastolic 81–83; PULSE 65–79; RESP 16–18; TEMP 98.2; O2SAT 97–98
[2017-12-28 05:18] LABS: BICARBONATE 24.8 MEQ/L (21.0-32.0); CALCIUM 8.8 MG/DL (8.5-10.1); CREATININE 0.77 MG/DL (0.60-1.30)
[2017-12-28 05:50] LABS: AUTOMATED NEUTROPHIL # 8.3 TH/MM3 (1.8-7.7); BASOPHIL # 0.2 TH/MM3 (0-0.2); BASOPHIL % 1.4 % (0.0-2.0); EOSINOPHIL # 0.3 TH/MM3 (0-0.4); EOSINOPHIL % 2.8 % (0.0-4.0); HEMATOCRIT 46.8 % (39.0-51.0); HEMOGLOBIN 15.9 GM/DL (13.0-17.0); LYMPH % 20.8 % (9.0-44.0); LYMPHOCYTE # 2.6 TH/MM3 (1.0-4.8); MEAN CELL VOLUME 87.1 FL (80.0-100.0); MEAN CORPUSCULAR HEMOGLOBIN 29.7 PG (27.0-34.0); MEAN PLATELET VOLUME 8.1 FL (7.0-11.0); MONO % 7.9 % (0.0-8.0); NEUT % 67.1 % (16.0-70.0); PLATELET COUNT 518 TH/MM3 (150-450); RED BLOOD COUNT 5.37 MIL/MM3 (4.50-5.90); RED CELL DISTRIBUTION WIDTH 14.8 % (11.6-17.2); WHITE BLOOD COUNT 12.4 TH/MM3 (4.0-11.0)
[2017-12-28] MEDS ORDERED: ISOSORBIDE MONONITRATE 30 MG CR TAB (IMDUR) PO SCH (07:00)
--- NOTE | 2017-12-28 08:55 | PD.CARD.PN ---
Subjective Subjective Remarks Pt feels well, no complaints. Objective Medications Current Medications Medications (Trade) Dose Ordered Sig/Ney Route Start Time Stop Time Status Last Admin Sodium Chloride 1,000 ml @ 30 mls/hr Q24H IV 12/27/17 11:00 (Tylenol) 325 mg Q4H PRN PO 12/27/17 12:15 (Percocet 5-325 Mg) 1 tab Q4H PRN PO 12/27/17 12:15 (Percocet 10-325 Mg) 1 tab Q4H PRN PO 12/27/17 12:15 (Morphine Inj) 2 mg Q30M PRN IV PUSH 12/27/17 12:15 (Zofran Inj) 4 mg Q6H PRN IVP 12/27/17 12:15 (Aspirin Chew) 81 mg DAILY PO 12/28/17 09:00 (Brilinta) 90 mg BID PO 12/27/17 21:00 12/27/17 21:18 (Lipitor) 80 mg HS PO 12/27/17 21:00 12/27/17 21:18 (Imdur) 30 mg DAILY@0700 PO 12/28/17 07:00 12/28/17 06:34 (Pneumovax-23 Inj) 25 mcg ONCE ONCE IM 12/28/17 10:00 12/28/17 10:01 (Flu (Quadrivalent) Vaccine Inj) 0.5 ml ONCE ONCE IM 12/28/17 10:00 12/28/17 10:01 (Prinivil) 40 mg DAILY PO 12/28/17 09:00 (Norvasc) 5 mg HS PO 12/28/17 21:00 Vital Signs / I&O Vital Signs Date Time Temp Pulse Resp B/P (MAP) Pulse Ox O2 Delivery O2 Flow Rate FiO2 12/28/17 07:18 98.2 72 18 140/81 (100) 97 12/28/17 07:00 79 12/28/17 06:00 68 12/28/17 05:00 66 12/28/17 04:30 65 16 142/83 (102) 98 12/28/17 04:00 66 12/28/17 03:00 68 12/28/17 02:00 66 12/28/17 01:00 66 12/28/17 00:00 66 5/4/18 23:23 68 16 140/90 (107) 96 12/27/17 23:00 71 12/27/17 22:00 68 12/27/17 21:00 68 12/27/17 20:00 64 12/27/17 19:15 98.0 70 16 149/81 (103) 97 12/27/17 19:00 71 12/27/17 17:00 65 12/27/17 15:00 98.4 65 18 143/92 (109) 98 12/27/17 12:10 98 Room Air 12/27/17 10:21 98.1 66 18 132/91 (105) 97 I/O 12/27/17 12/27/17 12/27/17 12/28/17 12/28/17 12/28/17 07:00 15:00 23:00 07:00 15:00 23:00 Intake Total 500 ml 480 ml Balance 500 ml 480 ml Intake Oral 480 ml IV Total 500 ml # Voids 1 3 # Bowel Movements 0 Physical Exam GENERAL: This is a well-nourished, well-developed patient, in no apparent distress. CARDIOVASCULAR: Regular rate and rhythm without murmurs, gallops, or rubs. RESPIRATORY: Clear to auscultation. Breath sounds equal bilaterally. No wheezes , rales, or rhonchi. GASTROINTESTINAL: Abdomen soft, non-tender, nondistended. Normal active bowel sounds MUSCULOSKELETAL: Extremities without clubbing, cyanosis, or edema. NEURO: Alert & Oriented x4 to person, place, time, situation. Moves all ext x4 Laboratory Laboratory Tests Test 12/27/17 10:05 12/28/17 04:26 White Blood Count 10.3 TH/MM3 12.4 TH/MM3 Red Blood Count 5.51 MIL/MM3 5.37 MIL/MM3 Hemoglobin 16.2 GM/DL 15.9 GM/DL Hematocrit 47.9 % 46.8 % Mean Corpuscular Volume 87.0 FL 87.1 FL Mean Corpuscular Hemoglobin 29.4 PG 29.7 PG Mean Corpuscular Hemoglobin Concent 33.8 % 34.0 % Red Cell Distribution Width 15.1 % 14.8 % Platelet Count 594 TH/MM3 518 TH/MM3 Mean Platelet Volume 8.0 FL 8.1 FL Neutrophils (%) (Auto) 62.9 % 67.1 % Lymphocytes (%) (Auto) 25.6 % 20.8 % Monocytes (%) (Auto) 6.9 % 7.9 % Eosinophils (%) (Auto) 3.3 % 2.8 % Basophils (%) (Auto) 1.3 % 1.4 % Neutrophils # (Auto) 6.5 TH/MM3 8.3 TH/MM3 Lymphocytes # (Auto) 2.6 TH/MM3 2.6 TH/MM3 Monocytes # (Auto) 0.7 TH/MM3 1.0 TH/MM3 Eosinophils # (Auto) 0.3 TH/MM3 0.3 TH/MM3 Basophils # (Auto) 0.1 TH/MM3 0.2 TH/MM3 CBC Comment DIFF FINAL AUTO DIFF Differential Comment AUTO DIFF CONFIRMED Prothrombin Time 10.2 SEC Prothromb Time International Ratio 1.0 RATIO Activated Partial Thromboplast Time 26.2 SEC Blood Urea Nitrogen 20 MG/DL 14 MG/DL Creatinine 0.91 MG/DL 0.77 MG/DL Random Glucose 105 MG/DL 97 MG/DL Calcium Level 8.9 MG/DL 8.8 MG/DL Sodium Level 142 MEQ/L 143 MEQ/L Potassium Level 4.2 MEQ/L 3.7 MEQ/L Chloride Level 108 MEQ/L 109 MEQ/L Carbon Dioxide Level 25.8 MEQ/L 24.8 MEQ/L Anion Gap 8 MEQ/L 9 MEQ/L Estimat Glomerular Filtration Rate 88 ML/MIN 107 ML/MIN Assessment and Plan Problem List: (1) CAD (coronary artery disease) ICD Codes: I25.10 - Atherosclerotic heart disease of [place] coronary artery without angina pectoris Plan: s/p PATIENCE to LCX, on asa/statin/Brillinta; will change amlodipine to metoprolol Assessment and Plan Ok to d/c home, f/u in 1-2 weeks. Randell Parra MD December 28, 2017 08:55
[2017-12-28] MEDS: TICAGRELOR 90 MG TAB PO SCH (08:59)
[2017-12-28] MEDS ORDERED: ASPIRIN 81 MG CHEW TAB PO SCH (09:00)
[2017-12-28] MEDS ORDERED: LISINOPRIL 20 MG TAB PO SCH (09:00)
[2017-12-28] MEDS ORDERED: INFLUENZA VIRUS VACCINE (QUADRIVALENT) 0.5 ML SYR IM ONE (10:00)
[2017-12-28] MEDS ORDERED: PNEUMOCOCCAL POLYVALENT INJ 25 MCG/0.5 ML SYR IM ONE (10:00)
[2017-12-28] MEDS ORDERED: METO1TAB9 PO ×2 (10:05→10:06)
[2017-12-28] MEDS ORDERED: amLODIPine BESYLATE 5 MG TAB PO SCH (21:00)
== END 2017-12-28 10:41 | disposition home or self-care (01) ==
LOC: HCAT 09:10 → HDIC 09:12 → HCIS 14:41 → HCAT 12-28 10:41
PROVIDERS: ATTEND Nuclear Medicine Nuclear Cardiology
DX: I25.10 Atherosclerotic heart disease of native coronary artery without angina pectoris (principal); I10 Essential (primary) hypertension; J44.9 Chronic obstructive pulmonary disease, unspecified; E78.5 Hyperlipidemia, unspecified; Z23 Encounter for immunization; Z79.82 Long term (current) use of aspirin
CPT/HCPCS: 80048; 85002; 85025; 85610; 85730; 90686; 90732; 92928; 93005; 93458; 99152; 99153; C1725; C1769; C1874; C1887; C1893; J1644; J2250; J3010; Q2038; Q9967